=== PATIENT | male | born 1965 | race Caucasian/White ===

== ENCOUNTER 2020-03-28 11:14 | Inpatient (IN) | payer OTHER ==
--- NOTE | 2020-03-28 14:42 | BHS.RME ---
Substance Use & Tx History - Substance Use History Heroin Substance amount: 10 to 15 bags Frequency of use: Daily Substance route: Injection (ex: intravenous or skin popping) Date of Last Use: 03/27/20 Alcohol Substance amount: 12 of 12 ozs of beer Frequency of use: Daily Substance route: Oral Date of Last Use: 03/27/20 - Last Treatment Date of last treatment: never been in detox before Physical/Psych/Mental Status - Behavior Eye Contact: Normal - Cooperativeness Cooperativeness: Cooperative - Thinking Thought Processes: Logical Thought content: Future oriented - Physical Health Problems Is patient presently having any pain?: No Does patient presently have any injuries (include location): No Does patient currently have a fever: No COWS - Scale Resting Pulse: 1= [place] 81-100 Sweatin= Chills/Flushing Restless Observation: 1= Difficult to Sit Still Pupil Size: 1= Pupils >than Normal Bone or Joint Aches: 2= Severe Diffuse Aches Runny Nose/ Eye Tearin= Runny Nose/Eyes GI Upset > 30mins: 3= Vomiting/Diarrhea Tremor Observation: 2= Slight Tremor Visible Yawning Observation: 1= 1-2x During Session Anxiety or Irritability: 2=Irritable/Anxious Goose Flesh Skin: 0=Smooth Skin COWS Score: 16 CIWA Nausea/Vomitin Muscle Tremors: 3 Anxiety: 3 Agitation: 2 Paroxysmal Sweats: 1-Minimal Palms Moist Orientation: 0-Oriented Tacttile Disturbances: 1-Very Mild Itch/Numbness Auditory Disturbances: 0-None Visual Disturbances: 0-None Headache: 2-Mild CIWA-Ar Total Score: 14
--- NOTE | 2020-03-28 14:50 | HP ---
COWS - Scale Resting Pulse: 1= [place] 81-100 Sweatin= Chills/Flushing Restless Observation: 1= Difficult to Sit Still Pupil Size: 1= Pupils >than Normal Bone or Joint Aches: 2= Severe Diffuse Aches Runny Nose/ Eye Tearin= Runny Nose/Eyes GI Upset > 30mins: 3= Vomiting/Diarrhea Tremor Observation: 2= Slight Tremor Visible Yawning Observation: 1= 1-2x During Session Anxiety or Irritability: 2=Irritable/Anxious Goose Flesh Skin: 0=Smooth Skin COWS Score: 16 CIWA Score Nausea/Vomitin Muscle Tremors: 3 Anxiety: 3 Agitation: 2 Paroxysmal Sweats: 1-Minimal Palms Moist Orientation: 0-Oriented Tacttile Disturbances: 1-Very Mild Itch/Numbness Auditory Disturbances: 0-None Visual Disturbances: 0-None Headache: 2-Mild CIWA-Ar Total Score: 14 - Admission Criteria [facility] Guidelines: Admission for Medically Managed Detox: Requires at least one of the followin. CIWA greater than 12 2. Seizures within the past 24 hours 3. Delirium tremens within the past 24 hours 4. Hallucinations within the past 24 hours 5. Acute intervention needed for co occurring medical disorder 6. Acute intervention needed for co occurring psychiatric disorder 7. Severe withdrawal that cannot be handled at a lower level of care (continued vomiting, continued diarrhea, abnormal vital signs) requiring intravenous medication and/or fluids 8. Admitting History and Physical - Admission Chief Complaint: i need help to stop using heroin History of Present Illness: this 55 years old male with heroin dependence seeking detox,never been in detox before History Source: Patient Limitations to Obtaining History: No Limitations - Past Medical History Cardiovascular: Yes: HTN Pulmonary: Yes: Asthma, Bronchitis Gastrointestinal: Yes: GERD Psych: Yes: Addictions Musculoskeletal: Yes: Chronic low back pain - Past Surgical History Additional Past Surgical History: fx of right wrist at age of 34 years ago - Smoking History Smoking history: Never smoked - Alcohol/Substance Use Hx Alcohol Use: Yes History of Substance Use: reports: Heroin - Social History Usual Living Arrangement: Yes: Other (cousin) Do you think of yourself as: Straight/Heterosexual Occupation: disability History of Recent Travel: No Other Social History: on disability,no legal issue Admission ROS S - HPI Chief Complaint: i need help to stop using heroin and alcohol Allergies/Adverse Reactions: Allergies Allergy/AdvReac Type Severity Reaction Status Date / Time No Known Allergies Allergy Verified 03/28/20 15:02 History of Present Illness: this 55 yers old male with heroin and alcohol dependence seeking detox,withdral symptom,never been in detox before, seen in [facility] yesterday history of hypertension asthma bronchitis chronic low back pain was old may have pancreatitis use subutex 10 am yesterday morning Exam Limitations: No Limitations - Ebola screening Have you traveled outside of the country in the last 21 days: No Have you had contact with anyone from an Ebola affected area: No Have you been sick,other than usual withdrawal symptoms: No Do you have a fever: No - Review of Systems Constitutional: Loss of Appetite, Malaise, Night Sweats, Changes in sleep, Weakness EENT: reports: Tearing, Nose Congestion Respiratory: reports: No Symptoms reported Cardiac: reports: No Symptoms Reported GI: reports: Blood Streaked Bowels, Vomiting, Abdominal cramping : reports: No Symptoms Reported Musculoskeletal: reports: Back Pain, Joint Pain, Muscle Pain Integumentary: reports: Dryness Neuro: reports: Tremors Endocrine: reports: No Symptoms Reported Hematology: reports: No Symptoms Reported Psychiatric: reports: No Sypmtoms Reported, Judgement Intact, Mood/Affect Appropiate, Orientated x3, Agitated Other Systems: Reviewed and Negative Patient History - Patient Medical History Hx Anemia: No Hx Asthma: Yes (on albuterol and symbicort ) Hx Chronic Obstructive Pulmonary Disease (COPD): No Hx Cancer: No Hx Cardiac Disorders: No Hx Congestive Heart Failure: No Hx Hypertension: No Hx Hypercholesterolemia: No Hx Pacemaker: No HX Cerebrovascular Accident: No Hx Seizures: No Hx Dementia: No Hx Diabetes: No Hx Gastrointestinal Disorders: No Hx Liver Disease: No Hx Genitourinary Disorders: No Hx Sexually Transmitted Disorders: No Hx Renal Disease (ESRD): No Hx Thyroid Disease: No Hx Human Immunodeficiency Virus (HIV): No Hx Hepatitis C: No Hx Depression: No Hx Suicide Attempt: No Hx Bipolar Disorder: No Hx Schizophrenia: No Other Medical History: no suicidal,no homicidal - Patient Surgical History Hx Orthopedic Surgery: Yes (right wrist fracture at age of 34) - PPD History Previous Implant?: Yes Documented Results: Negative w/o proof Implanted On Prior [facility] Admission?: No PPD to be Administered?: Yes - Smoking Cessation Smoking history: Never smoked - Substance & Tx. History Hx Alcohol Use: Yes Hx Substance Use: Yes Substance Use Type: Alcohol, Heroin Hx Substance Use Treatment: No - Substances abused Heroin Substance route: Injection Frequency: Daily Amount used: 10 to 15 bags Age of first use: 54 Date of last use: 03/27/20 Alcohol Substance route: Oral Frequency: Daily Amount used: 12 of 12 ozs of beer Age of first use: 13 Date of last use: 03/27/20 Admission Physical Exam [facility] - Vital Signs Vital Signs: bp 121/78,p87,r18,t97.2,rivera 0.000,pulse ox 97% - Physical General Appearance: Yes: Moderate Distress, Tremorous, Irritable, Sweating, Anxious HEENTM: Yes: Normal ENT Inspection, YASSINE, Pharynx Normal Respiratory: Yes: Lungs Clear, Normal Breath Sounds, No Respiratory Distress Neck: Yes: Within Normal Limits, Supple, Trachea in good position Breast: Yes: Within Normal Limits Cardiology: Yes: Within Normal Limits, Regular Rhythm, Regular Rate, S1, S2 Abdominal: Yes: Within Normal Limits, Normal Bowel Sounds, Non Tender, Soft Genitourinary: Yes: Within Normal Limits Back: Yes: Muscle Spasm Musculoskeletal: Yes: Back pain, Muscle Pain Extremities: Yes: Within Normal Limits, Normal Range of Motion, Tremors Neurological: Yes: Within Normal Limits, head miller II-XII NML intact, Alert, Motor Strength 5/5 Integumentary: Yes: Dry, Track Crowley (tattooes) Lymphatic: Yes: Within Normal Limits - Diagnostic (1) Opioid dependence with withdrawal Current Visit: Yes Status: Acute (2) Alcohol dependence with uncomplicated withdrawal Current Visit: Yes Status: Acute (3) Hypertension Current Visit: Yes Status: Acute (4) Asthmatic bronchitis Current Visit: Yes Status: Acute Cleared for Admission [facility] - Detox or Rehab [facility] Level of Care: Medically Managed Detox Regimen/Protocol: Methadone/Librium Inpatient Rehab Admission - Rehab Decision to Admit Inpatient rehab admission?: No
[2020-03-28] MEDS ORDERED: IBUPROFEN 400 MG TABLET (FP) PO PRN (15:30)
[2020-03-28] MEDS ORDERED: BISMUTH SUBSALICYLATE 524 MG/30 ML UD PO PRN (15:30)
[2020-03-28] MEDS ORDERED: MENTHOL/PHENOL 1 EACH UD MM PRN (15:30)
[2020-03-28] MEDS ORDERED: ONDANSETRON *ODT* 4 MG TABLET SL PRN (15:30)
[2020-03-28] MEDS ORDERED: ACETAMINOPHEN 325 MG TABLET (FP) PO PRN ×2 (15:30)
[2020-03-28] MEDS ORDERED: MAG HYDROX/AL HYDROX/SIMETH 30 ML UNIT-DOSE CUP PO PRN (15:30)
[2020-03-28] MEDS ORDERED: MAGNESIUM HYDROX 2400MG/30ML ORAL SUSPENSION 30 ML CUP PO PRN (15:30)
[2020-03-28] MEDS ORDERED: NALOXONE HCL 0.4 MG/ML VIAL IM PRN (15:30)
[2020-03-28] MEDS ORDERED: MAGNESIUM CITRATE 300 ML BOTTLE PO PRN (15:30)
[2020-03-28] MEDS ORDERED: METHADONE HCL 10 MG TABLET (FOR DETOX USE ONLY) PO ONE (15:45)
[2020-03-28] MEDS ORDERED: METHADONE HCL 10 MG TABLET (FOR DETOX USE ONLY) ONE (15:48)
[2020-03-28 15:52] VITALS: BMI 30.7
[2020-03-28] MEDS: chlordiazePOXIDE HCL 25 MG CAPSULE PO PRN (15:52)
[2020-03-28] MEDS ORDERED: ALBUTEROL SO4 HFA INHALER IH PRN (18:28)
[2020-03-28] MEDS: PANTOPRAZOLE 40 MG TABLET PO SCH (18:34)
[2020-03-28] MEDS: hydrOXYzine PAMOATE 25 MG CAPSULE (FP) PO SCH ×2 (18:34→23:41)
[2020-03-28] MEDS: cloNIDine HCL 0.1 MG TABLET PO PRN (19:25)
[2020-03-28] MEDS: BUDESONIDE/FORMETEROL FUMARATE 160/4.5 mcg INHALER IH SCH (23:40)
[2020-03-28] MEDS: MELATONIN 5 MG TABLETS PO SCH (23:40)
[2020-03-28] MEDS: THIAMINE HCL 100 MG TABLET (FP) PO SCH (23:41)
[2020-03-28] MEDS: chlordiazePOXIDE HCL 25 MG CAPSULE PO SCH (23:42)
[2020-03-29] MEDS: chlordiazePOXIDE HCL 25 MG CAPSULE PO SCH ×4 (05:30→22:22)
[2020-03-29] MEDS: hydrOXYzine PAMOATE 25 MG CAPSULE (FP) PO SCH ×5 (06:44→22:22)
[2020-03-29] MEDS ORDERED: METHADONE HCL 5 MG TABLET (FOR DETOX USE ONLY) ONE (08:59)
[2020-03-29] MEDS ORDERED: METHADONE HCL 10 MG TABLET (FOR DETOX USE ONLY) ONE (08:59)
[2020-03-29] MEDS ORDERED: PATIENT'S OWN MEDICATION (NON-FORMULARY) (Losartan/Hydrochlorothiazide [Losartan-Hctz 100- PO SCH (10:00)
[2020-03-29] MEDS ORDERED: METHADONE (DETOX) 20 MG, METHADONE (DETOX) 5 MG PO ONE (10:00)
[2020-03-29] MEDS: LOSARTAN POTASSIUM 50 MG TABLET (FP) PO SCH (10:01)
[2020-03-29] MEDS: HYDROCHLOROTHIAZIDE 25 MG TABLET (FP) PO SCH (10:02)
[2020-03-29] MEDS: PRENATAL VITAMINS W/ FOLIC ACID TABLET (FP) PO SCH (10:02)
[2020-03-29] MEDS: PANTOPRAZOLE 40 MG TABLET PO SCH (10:02)
[2020-03-29] MEDS: BUDESONIDE/FORMETEROL FUMARATE 160/4.5 mcg INHALER IH SCH ×2 (10:03→22:23)
[2020-03-29 11:01] LABS: HEMOGLOBIN 10.9 GM/dL (11.7-16.9); MCH 28.1 pg (25.7-33.7); MCHC 33.2 g/dl (32.0-35.9); MEAN CELL VOLUME 84.6 fl (80-96); MEAN PLT VOLUME 7.4 fl (7.5-11.1); PLATELET COUNT 291 K/MM3 (134-434); RBC 3.89 M/mm3 (4.00-5.60); RDW 13.7 % (11.9-15.9); WHITE BLOOD COUNT 6.8 K/mm3 (4.0-10.0)
[2020-03-29 11:13] LABS: ALBUMIN 3.5 g/dl (3.4-5.0); BILIRUBIN,TOTAL 0.8 mg/dL (0.2-1); BLOOD UREA NITROGEN 25.6 mg/dL (7-18); CALCIUM 9.5 mg/dL (8.5-10.1); CREATININE 1.8 mg/dL (0.55-1.3); POTASSIUM 3.6 mmol/L (3.5-5.1); TOT PROT 8.4 g/dl (6.4-8.2)
[2020-03-29] MEDS: cloNIDine HCL 0.1 MG TABLET PO PRN ×2 (11:16→18:35)
--- NOTE | 2020-03-29 11:44 | EKG ---
Test Reason : Blood Pressure : / mmHG Vent. Rate : 073 BPM Atrial Rate : 073 BPM P-R Int : 180 ms QRS Dur : 086 ms QT Int : 368 ms P-R-T Axes : 048 038 048 degrees QTc Int : 405 ms NORMAL SINUS RHYTHM NORMAL ECG NO PREVIOUS ECGS AVAILABLE Confirmed by LISA GARCIA MD ([id number]) on 03/29/2020 11:43:13 AM Referred By: Darin CHOWDHURY Confirmed By:LISA GARCIA MD
[2020-03-29] MEDS: METHOCARBAMOL 500 MG TABLET PO PRN ×2 (13:14→20:13)
--- NOTE | 2020-03-29 15:34 | PN ---
S CIWA - CIWA Score Nausea/Vomitin-Mild Nausea/No Vomiting Muscle Tremors: 3 Anxiety: 3 Agitation: 1-Slight > Activity Paroxysmal Sweats: No Perspiration Orientation: 0-Oriented Tacttile Disturbances: 1-Very Mild Itch/Numbness Auditory Disturbances: 0-None Visual Disturbances: 2-Mild Sensitivity Headache: 2-Mild CIWA-Ar Total Score: 13 BHS COWS - Scale Resting Pulse: 0= [place] 80 or Below Sweatin= Chills/Flushing Restless Observation: 0= Sits Still Pupil Size: 1= Pupils >than Normal Bone or Joint Aches: 1= Mild Discomfort Runny Nose/ Eye Tearin= Nasal Congestion GI Upset > 30mins: 2= Nausea/Diarrhea Tremor Observation of Outstretched Hands: 2= Slight Tremor Visible Yawning Observation: 0= None Anxiety or Irritability: 2=Irritable/Anxious Goose Flesh Skin: 3=Piloerection COWS Score: 13 S Progress Note (SOAP) Subjective: 55 years old male was admitted on 03/28/20 for alcohol and opiate withdrawal sx management treating with librium and opiate withdrawal sx management anxiety restlessness encourage clonidine as ordered prn that works for mr morocho by history while detoxing methadone Objective: 03/29/20 15:34 Vital Signs - 24 hr 03/28/20 03/28/20 03/28/20 15:42 16:34 17:45 Temperature 97.2 F L 97.3 F L Pulse Rate 87 87 Respiratory 18 18 Rate Blood Pressure 121/78 133/85 O2 Sat by Pulse 97 99 Oximetry (%) 03/28/20 03/28/20 03/29/20 19:22 21:06 06:15 Temperature 97.3 F L 97.6 F 96.8 F L Pulse Rate 81 68 52 L Respiratory 18 18 16 Rate Blood Pressure 138/91 129/81 115/70 O2 Sat by Pulse 98 99 Oximetry (%) 03/29/20 03/29/20 09:09 12:34 Temperature 96.4 F L 97.1 F L Pulse Rate 67 73 Respiratory 18 18 Rate Blood Pressure 121/81 99/62 O2 Sat by Pulse Oximetry (%) Laboratory Tests 03/29/20 03/29/20 03/29/20 07:40 07:40 07:40 WBC 6.8 RBC 3.89 L Hgb 10.9 L Hct 33.0 L MCV 84.6 MCH 28.1 MCHC 33.2 RDW 13.7 Plt Count 291 MPV 7.4 L Sodium 134 L Potassium 3.6 Chloride 95 L Carbon Dioxide 30 Anion Gap 9 BUN 25.6 H Creatinine 1.8 H Est GFR (CKD-EPI)AfAm 47.70 Est GFR (CKD-EPI)NonAf 41.16 Random Glucose 95 Calcium 9.5 Total Bilirubin 0.8 AST 24 ALT 36 Alkaline Phosphatase 116 Total Protein 8.4 H Albumin 3.5 Total Amylase Lipase Syphilis Serology Non-reactive 03/29/20 03/29/20 07:40 07:40 WBC RBC Hgb Hct MCV MCH MCHC RDW Plt Count MPV Sodium Potassium Chloride Carbon Dioxide Anion Gap BUN Creatinine Est GFR (CKD-EPI)AfAm Est GFR (CKD-EPI)NonAf Random Glucose Calcium Total Bilirubin AST ALT Alkaline Phosphatase Total Protein Albumin Total Amylase 105 Lipase 329 Syphilis Serology 03/29/20 15:37 amylase and lipase within acceptable range Assessment: alcohol and opiate withdrawal Plan: librium and methadone regiments
[2020-03-29] MEDS: MELATONIN 5 MG TABLETS PO SCH (22:22)
[2020-03-29] MEDS: THIAMINE HCL 100 MG TABLET (FP) PO SCH (22:22)
[2020-03-30] MEDS: cloNIDine HCL 0.1 MG TABLET PO PRN (03:03)
[2020-03-30] MEDS: hydrOXYzine PAMOATE 25 MG CAPSULE (FP) PO SCH ×2 (05:31→10:23)
[2020-03-30] MEDS: chlordiazePOXIDE HCL 25 MG CAPSULE PO SCH ×4 (05:31→22:17)
[2020-03-30] MEDS ORDERED: METHADONE HCL 10 MG TABLET (FOR DETOX USE ONLY) PO ONE (10:00)
[2020-03-30] MEDS: PRENATAL VITAMINS W/ FOLIC ACID TABLET (FP) PO SCH (10:21)
[2020-03-30] MEDS: LOSARTAN POTASSIUM 50 MG TABLET (FP) PO SCH (10:21)
[2020-03-30] MEDS: HYDROCHLOROTHIAZIDE 25 MG TABLET (FP) PO SCH (10:21)
[2020-03-30] MEDS: PANTOPRAZOLE 40 MG TABLET PO SCH (10:21)
[2020-03-30] MEDS: BUDESONIDE/FORMETEROL FUMARATE 160/4.5 mcg INHALER IH SCH ×2 (10:22→22:23)
[2020-03-30 10:35] LABS: URINE APPEARANCE CLEAR; URINE BILIRUBIN NEGATIVE (NEGATIVE); URINE COLOR YELLOW; URINE GLUCOSE (UA) NEGATIVE (NEGATIVE); URINE KETONE NEGATIVE (NEGATIVE); URINE LEUK ESTERASE NEGATIVE (NEGATIVE); URINE NITRITE NEGATIVE (NEGATIVE); URINE PROTEIN NEGATIVE (NEGATIVE); URINE UROBILINOGEN 0.2 mg/dL (0.2-1.0)
--- NOTE | 2020-03-30 11:27 | PN ---
[facility] CIWA - CIWA Score Nausea/Vomitin-Mild Nausea/No Vomiting Muscle Tremors: 2 Anxiety: 3 Agitation: 0-Normal Activity Paroxysmal Sweats: No Perspiration Orientation: 0-Oriented Tacttile Disturbances: 0-None Auditory Disturbances: 0-None Visual Disturbances: 1-Very Mild Sensitivity Headache: 2-Mild CIWA-Ar Total Score: 9 S COWS - Scale Resting Pulse: 0= [place] 80 or Below Sweatin= Chills/Flushing Restless Observation: 0= Sits Still Pupil Size: 1= Pupils >than Normal Bone or Joint Aches: 1= Mild Discomfort Runny Nose/ Eye Tearin= Nasal Congestion GI Upset > 30mins: 2= Nausea/Diarrhea Tremor Observation of Outstretched Hands: 0= None Yawning Observation: 1= 1-2x During Session Anxiety or Irritability: 2=Irritable/Anxious Goose Flesh Skin: 0=Smooth Skin COWS Score: 9 S Progress Note (SOAP) Subjective: 55 years old male was admitted on 03/28/20 for alcohol withdrawal sx management treating with librium and methadone detox regiment low bp Vital Signs - 24 hr 03/29/20 03/29/20 03/29/20 12:34 16:44 18:29 Temperature 97.1 F L 97.3 F L Pulse Rate 73 61 70 Respiratory 18 18 18 Rate Blood Pressure 99/62 105/68 122/79 O2 Sat by Pulse Oximetry (%) 03/29/20 03/30/20 03/30/20 20:29 05:59 08:34 Temperature 96.9 F L 97.2 F L 97.1 F L Pulse Rate 61 62 67 Respiratory 18 18 18 Rate Blood Pressure 100/78 101/60 99/62 O2 Sat by Pulse 100 97 Oximetry (%) discontinue clonidine set parameter for losartan hctz amd metoprolol increase vistaril to 50mg po order naproxin for pain Objective: 03/30/20 11:30 Vital Signs - 24 hr 03/29/20 03/29/20 03/29/20 12:34 16:44 18:29 Temperature 97.1 F L 97.3 F L Pulse Rate 73 61 70 Respiratory 18 18 18 Rate Blood Pressure 99/62 105/68 122/79 O2 Sat by Pulse Oximetry (%) 03/29/20 03/30/2020 20:29 05:59 08:34 Temperature 96.9 F L 97.2 F L 97.1 F L Pulse Rate 61 62 67 Respiratory 18 18 18 Rate Blood Pressure 100/78 101/60 99/62 O2 Sat by Pulse 100 97 Oximetry (%) Laboratory Tests 03/28/20 03/29/20 03/29/20 19:00 07:40 07:40 WBC 6.8 RBC 3.89 L Hgb 10.9 L Hct 33.0 L MCV 84.6 MCH 28.1 MCHC 33.2 RDW 13.7 Plt Count 291 MPV 7.4 L Sodium Potassium Chloride Carbon Dioxide Anion Gap BUN Creatinine Est GFR (CKD-EPI)AfAm Est GFR (CKD-EPI)NonAf Random Glucose Calcium Total Bilirubin AST ALT Alkaline Phosphatase Total Protein Albumin Total Amylase Lipase Urine Color Urine Appearance Urine pH Ur Specific [place] Urine Protein Urine Glucose (UA) Urine Ketones Urine Blood Urine Nitrite Urine Bilirubin Urine Urobilinogen Ur Leukocyte Esterase Syphilis Serology Non-reactive COVID-19 ([facility]) Not detected 03/29/20 03/29/20 03/29/20 07:40 07:40 07:40 WBC RBC Hgb Hct MCV MCH MCHC RDW Plt Count MPV Sodium 134 L Potassium 3.6 Chloride 95 L Carbon Dioxide 30 Anion Gap 9 BUN 25.6 H Creatinine 1.8 H Est GFR (CKD-EPI)AfAm 47.70 Est GFR (CKD-EPI)NonAf 41.16 Random Glucose 95 Calcium 9.5 Total Bilirubin 0.8 AST 24 ALT 36 Alkaline Phosphatase 116 Total Protein 8.4 H Albumin 3.5 Total Amylase 105 Lipase 329 Urine Color Urine Appearance Urine pH Ur Specific [place] Urine Protein Urine Glucose (UA) Urine Ketones Urine Blood Urine Nitrite Urine Bilirubin Urine Urobilinogen Ur Leukocyte Esterase Syphilis Serology COVID-19 ([facility]) 03/30/20 08:00 WBC RBC Hgb Hct MCV MCH MCHC RDW Plt Count MPV Sodium Potassium Chloride Carbon Dioxide Anion Gap BUN Creatinine Est GFR (CKD-EPI)AfAm Est GFR (CKD-EPI)NonAf Random Glucose Calcium Total Bilirubin AST ALT Alkaline Phosphatase Total Protein Albumin Total Amylase Lipase Urine Color Yellow Urine Appearance Clear Urine pH 5.0 Ur Specific [place] 1.007 L Urine Protein Negative Urine Glucose (UA) Negative Urine Ketones Negative Urine Blood Negative Urine Nitrite Negative Urine Bilirubin Negative Urine Urobilinogen 0.2 Ur Leukocyte Esterase Negative Syphilis Serology COVID-19 ([facility]) oral hydration discontinue motrin begin naproxin 03/30/20 11:31 Assessment: 03/30/20 11:32 alcohol and opiate withdrawal Plan: librium and methadone regiments
[2020-03-30] MEDS: chlordiazePOXIDE HCL 25 MG CAPSULE PO PRN ×2 (11:46→19:07)
[2020-03-30] MEDS: METHOCARBAMOL 500 MG TABLET PO PRN ×2 (11:47→21:25)
[2020-03-30] MEDS: hydrOXYzine PAMOATE 50 MG CAPSULE (FP) PO SCH ×4 (11:47→23:00)
[2020-03-30] MEDS ORDERED: cloNIDine HCL 0.1 MG TABLET PO ONE (13:45)
[2020-03-30] MEDS: NAPROXEN 375 MG TABLET PO SCH ×2 (17:38→22:18)
[2020-03-30] MEDS: THIAMINE HCL 100 MG TABLET (FP) PO SCH (22:17)
[2020-03-30] MEDS: MELATONIN 5 MG TABLETS PO SCH (22:19)
[2020-03-31] MEDS: chlordiazePOXIDE HCL 10 MG CAPSULE PO PRN ×2 (00:33→20:31)
[2020-03-31] MEDS: hydrOXYzine PAMOATE 50 MG CAPSULE (FP) PO SCH ×6 (03:10→22:44)
[2020-03-31] MEDS: METHOCARBAMOL 500 MG TABLET PO PRN (03:12)
[2020-03-31] MEDS: chlordiazePOXIDE HCL 10 MG CAPSULE PO SCH ×4 (05:45→22:10)
[2020-03-31] MEDS ORDERED: METHADONE HCL 10 MG TABLET (FOR DETOX USE ONLY) ONE (09:58)
[2020-03-31] MEDS ORDERED: METHADONE HCL 5 MG TABLET (FOR DETOX USE ONLY) ONE (09:59)
[2020-03-31] MEDS ORDERED: METHADONE (DETOX) 10 MG, METHADONE (DETOX) 5 MG PO ONE (10:00)
[2020-03-31] MEDS: LOSARTAN POTASSIUM 50 MG TABLET (FP) PO SCH (10:24)
[2020-03-31] MEDS: PRENATAL VITAMINS W/ FOLIC ACID TABLET (FP) PO SCH (10:25)
[2020-03-31] MEDS: PANTOPRAZOLE 40 MG TABLET PO SCH (10:25)
[2020-03-31] MEDS: BUDESONIDE/FORMETEROL FUMARATE 160/4.5 mcg INHALER IH SCH ×2 (10:25→22:10)
[2020-03-31] MEDS: NAPROXEN 375 MG TABLET PO SCH ×2 (10:26→22:10)
[2020-03-31] MEDS: HYDROCHLOROTHIAZIDE 25 MG TABLET (FP) PO SCH (10:27)
--- NOTE | 2020-03-31 11:59 | PN ---
S CIWA - CIWA Score Nausea/Vomitin-No Nausea/No Vomiting Muscle Tremors: 2 Anxiety: 2 Agitation: 0-Normal Activity Paroxysmal Sweats: No Perspiration Orientation: 0-Oriented Tacttile Disturbances: 0-None Auditory Disturbances: 0-None Visual Disturbances: 2-Mild Sensitivity Headache: 0-None Present CIWA-Ar Total Score: 6 BHS COWS - Scale Resting Pulse: 0= [place] 80 or Below Sweatin= Chills/Flushing Restless Observation: 0= Sits Still Pupil Size: 1= Pupils >than Normal Bone or Joint Aches: 1= Mild Discomfort Runny Nose/ Eye Tearin= None GI Upset > 30mins: 1= Stomach Cramp Tremor Observation of Outstretched Hands: 1= Tremor [place], Not Seen Yawning Observation: 0= None Anxiety or Irritability: 1=Feels Anxious/Irritable Goose Flesh Skin: 0=Smooth Skin COWS Score: 6 S Progress Note (SOAP) Subjective: 55 years old male was admitted on 03/28/20 for alcohol and opiate withdrawal sx management treating with librium and methadone detox regiments mr morocho insists to take clonidine for opiate withdrawal that it is "the only drug" works hold metoprolol while clonidine is in used Objective: 03/31/20 12:05 Vital Signs - 24 hr 03/30/20 03/30/20 03/30/20 12:32 16:35 20:58 Temperature 97.3 F L 97.5 F L 96.9 F L Pulse Rate 83 65 81 Respiratory 20 18 18 Rate Blood Pressure 109/67 102/60 125/87 O2 Sat by Pulse 100 100 98 Oximetry (%) 03/31/20 03/31/20 06:29 08:40 Temperature 97.1 F L 96.7 F L Pulse Rate 63 69 Respiratory 18 18 Rate Blood Pressure 101/66 141/90 O2 Sat by Pulse 99 Oximetry (%) Laboratory Tests 03/28/20 03/29/20 03/29/20 19:00 07:40 07:40 WBC 6.8 RBC 3.89 L Hgb 10.9 L Hct 33.0 L MCV 84.6 MCH 28.1 MCHC 33.2 RDW 13.7 Plt Count 291 MPV 7.4 L Sodium Potassium Chloride Carbon Dioxide Anion Gap BUN Creatinine Est GFR (CKD-EPI)AfAm Est GFR (CKD-EPI)NonAf Random Glucose Calcium Total Bilirubin AST ALT Alkaline Phosphatase Total Protein Albumin Total Amylase Lipase Urine Color Urine Appearance Urine pH Ur Specific [place] Urine Protein Urine Glucose (UA) Urine Ketones Urine Blood Urine Nitrite Urine Bilirubin Urine Urobilinogen Ur Leukocyte Esterase Syphilis Serology Non-reactive COVID-19 ([facility]) Not detected 03/29/20 03/29/20 03/29/20 07:40 07:40 07:40 WBC RBC Hgb Hct MCV MCH MCHC RDW Plt Count MPV Sodium 134 L Potassium 3.6 Chloride 95 L Carbon Dioxide 30 Anion Gap 9 BUN 25.6 H Creatinine 1.8 H Est GFR (CKD-EPI)AfAm 47.70 Est GFR (CKD-EPI)NonAf 41.16 Random Glucose 95 Calcium 9.5 Total Bilirubin 0.8 AST 24 ALT 36 Alkaline Phosphatase 116 Total Protein 8.4 H Albumin 3.5 Total Amylase 105 Lipase 329 Urine Color Urine Appearance Urine pH Ur Specific [place] Urine Protein Urine Glucose (UA) Urine Ketones Urine Blood Urine Nitrite Urine Bilirubin Urine Urobilinogen Ur Leukocyte Esterase Syphilis Serology COVID-19 ([facility]) 03/30/20 08:00 WBC RBC Hgb Hct MCV MCH MCHC RDW Plt Count MPV Sodium Potassium Chloride Carbon Dioxide Anion Gap BUN Creatinine Est GFR (CKD-EPI)AfAm Est GFR (CKD-EPI)NonAf Random Glucose Calcium Total Bilirubin AST ALT Alkaline Phosphatase Total Protein Albumin Total Amylase Lipase Urine Color Yellow Urine Appearance Clear Urine pH 5.0 Ur Specific [place] 1.007 L Urine Protein Negative Urine Glucose (UA) Negative Urine Ketones Negative Urine Blood Negative Urine Nitrite Negative Urine Bilirubin Negative Urine Urobilinogen 0.2 Ur Leukocyte Esterase Negative Syphilis Serology COVID-19 ([facility]) lab noted 03/31/20 12:07 Assessment: 03/31/20 12:07 alcohol and opiate withdrawal Plan: librium and methadone regiments
[2020-03-31] MEDS: cloNIDine HCL 0.1 MG TABLET PO PRN ×2 (12:38→18:35)
[2020-03-31] MEDS: THIAMINE HCL 100 MG TABLET (FP) PO SCH (22:10)
[2020-03-31] MEDS: MELATONIN 5 MG TABLETS PO SCH (22:10)
[2020-04-01] MEDS: cloNIDine HCL 0.1 MG TABLET PO PRN ×4 (02:34→21:13)
[2020-04-01] MEDS: chlordiazePOXIDE HCL 10 MG CAPSULE PO SCH ×2 (05:31→17:31)
[2020-04-01] MEDS: hydrOXYzine PAMOATE 50 MG CAPSULE (FP) PO SCH ×6 (05:31→23:09)
[2020-04-01] MEDS: BUDESONIDE/FORMETEROL FUMARATE 160/4.5 mcg INHALER IH SCH ×2 (09:42→21:13)
[2020-04-01] MEDS: HYDROCHLOROTHIAZIDE 25 MG TABLET (FP) PO SCH (09:42)
[2020-04-01] MEDS: PANTOPRAZOLE 40 MG TABLET PO SCH (09:43)
[2020-04-01] MEDS: LOSARTAN POTASSIUM 50 MG TABLET (FP) PO SCH (09:43)
[2020-04-01] MEDS: NAPROXEN 375 MG TABLET PO SCH ×2 (09:43→21:13)
[2020-04-01] MEDS: PRENATAL VITAMINS W/ FOLIC ACID TABLET (FP) PO SCH (09:43)
[2020-04-01] MEDS: METHOCARBAMOL 500 MG TABLET PO PRN ×2 (09:44→21:13)
[2020-04-01] MEDS ORDERED: METHADONE HCL 10 MG TABLET (FOR DETOX USE ONLY) PO ONE (10:00)
--- NOTE | 2020-04-01 10:02 | PN ---
[facility] CIWA - CIWA Score Nausea/Vomitin-Mild Nausea/No Vomiting Muscle Tremors: 2 Anxiety: 2 Agitation: 1-Slight > Activity Paroxysmal Sweats: No Perspiration Orientation: 0-Oriented Tacttile Disturbances: 0-None Auditory Disturbances: 0-None Visual Disturbances: 0-None Headache: 1-Very Mild CIWA-Ar Total Score: 7 S COWS - Scale Resting Pulse: 1= [place] 81-100 Sweatin= No chills or Flushing Restless Observation: 0= Sits Still Pupil Size: 0= Normal to Room Light Bone or Joint Aches: 1= Mild Discomfort Runny Nose/ Eye Tearin= Nasal Congestion GI Upset > 30mins: 1= Stomach Cramp Tremor Observation of Outstretched Hands: 2= Slight Tremor Visible Yawning Observation: 0= None Anxiety or Irritability: 2=Irritable/Anxious Goose Flesh Skin: 0=Smooth Skin COWS Score: 8 [facility] Progress Note (SOAP) Subjective: alert,irritable,anxious,interrupted sleep,pain in the body and back,aching pain,low back pain Objective: 04/01/20 15:58 Vital Signs Temperature 96.9 F L 04/01/20 12:38 Pulse Rate 74 04/01/20 12:38 Respiratory Rate 20 04/01/20 12:38 Blood Pressure 100/66 04/01/20 12:38 O2 Sat by Pulse Oximetry (%) 100 04/01/20 12:38 Assessment: 04/01/20 15:59 withdrawal symptom Plan: continue detox methadone and librium regimen,vishal for ambulatory aids,discharge in am
[2020-04-01] MEDS: THIAMINE HCL 100 MG TABLET (FP) PO SCH (21:14)
[2020-04-01] MEDS: MELATONIN 5 MG TABLETS PO SCH (21:14)
[2020-04-02] MEDS ORDERED: chlordiazePOXIDE HCL 10 MG CAPSULE PO ONE (05:00)
[2020-04-02] MEDS: hydrOXYzine PAMOATE 50 MG CAPSULE (FP) PO SCH ×3 (06:00→12:46)
[2020-04-02] MEDS ORDERED: METHADONE HCL 5 MG TABLET (FOR DETOX USE ONLY) PO ONE (06:00)
--- NOTE | 2020-04-02 08:54 | DS ---
[facility] Detox Discharge Summary Admission Date: 03/28/20 Discharge Date: 04/02/20 - History Present History: Alcohol Dependence, Opioid Dependence - Physical Exam Results Vital Signs: Vital Signs Temperature 96.8 F L 04/02/20 07:34 Pulse Rate 58 L 04/02/20 07:34 Respiratory Rate 18 04/02/20 07:34 Blood Pressure 120/77 04/02/20 07:34 O2 Sat by Pulse Oximetry (%) 98 04/02/20 07:34 Pertinent Admission Physical Exam Findings: PE Gnl: WDWN in no distress MS: nl mentation Motor: moves limbs well Gait: steady Laboratory Tests 03/28/20 03/29/20 03/29/20 19:00 07:40 07:40 WBC 6.8 RBC 3.89 L Hgb 10.9 L Hct 33.0 L MCV 84.6 MCH 28.1 MCHC 33.2 RDW 13.7 Plt Count 291 MPV 7.4 L Sodium Potassium Chloride Carbon Dioxide Anion Gap BUN Creatinine Est GFR (CKD-EPI)AfAm Est GFR (CKD-EPI)NonAf Random Glucose Calcium Total Bilirubin AST ALT Alkaline Phosphatase Total Protein Albumin Total Amylase Lipase Urine Color Urine Appearance Urine pH Ur Specific [place] Urine Protein Urine Glucose (UA) Urine Ketones Urine Blood Urine Nitrite Urine Bilirubin Urine Urobilinogen Ur Leukocyte Esterase Syphilis Serology Non-reactive COVID-19 (SAKSHI) Not detected 03/29/20 03/29/20 03/29/20 07:40 07:40 07:40 WBC RBC Hgb Hct MCV MCH MCHC RDW Plt Count MPV Sodium 134 L Potassium 3.6 Chloride 95 L Carbon Dioxide 30 Anion Gap 9 BUN 25.6 H Creatinine 1.8 H Est GFR (CKD-EPI)AfAm 47.70 Est GFR (CKD-EPI)NonAf 41.16 Random Glucose 95 Calcium 9.5 Total Bilirubin 0.8 AST 24 ALT 36 Alkaline Phosphatase 116 Total Protein 8.4 H Albumin 3.5 Total Amylase 105 Lipase 329 Urine Color Urine Appearance Urine pH Ur Specific [place] Urine Protein Urine Glucose (UA) Urine Ketones Urine Blood Urine Nitrite Urine Bilirubin Urine Urobilinogen Ur Leukocyte Esterase Syphilis Serology COVID-19 (SAKSHI) 03/30/20 08:00 WBC RBC Hgb Hct MCV MCH MCHC RDW Plt Count MPV Sodium Potassium Chloride Carbon Dioxide Anion Gap BUN Creatinine Est GFR (CKD-EPI)AfAm Est GFR (CKD-EPI)NonAf Random Glucose Calcium Total Bilirubin AST ALT Alkaline Phosphatase Total Protein Albumin Total Amylase Lipase Urine Color Yellow Urine Appearance Clear Urine pH 5.0 Ur Specific [place] 1.007 L Urine Protein Negative Urine Glucose (UA) Negative Urine Ketones Negative Urine Blood Negative Urine Nitrite Negative Urine Bilirubin Negative Urine Urobilinogen 0.2 Ur Leukocyte Esterase Negative Syphilis Serology COVID-19 (SAKSHI) Home Medication List Medication Instructions Recorded Confirmed Type Losartan/Hydrochlorothiazide 1 each PO DAILY 03/28/20 03/28/20 History [Losartan-Hctz 100-25 mg Tab] Metoprolol Succinate 50 mg PO DAILY 03/28/20 03/28/20 History Pantoprazole Sodium 40 mg PO DAILY 03/28/20 03/28/20 History Active Medications Generic Name Dose Route Start Last Admin Trade Name Freq PRN Reason Stop Dose Admin Acetaminophen 650 mg 03/28/20 15:30 Tylenol - PO Q6H PRN PAIN LEVEL 4 - 6 Acetaminophen 650 mg 03/28/20 15:30 Tylenol - PO Q6H PRN FEVER Al Hydroxide/Mg Hydroxide 30 ml 03/28/20 15:30 03/31/20 21:17 Mylanta Oral Suspension - PO 30 ml Q6H PRN Administration DYSPEPSIA Albuterol Sulfate 2 puff 03/28/20 18:28 Ventolin Hfa Inhaler - IH Q4H PRN SHORT OF BREATH/WHEEZING Bismuth Subsalicylate 524 mg 03/28/20 15:30 Pepto-Bismol - PO Q1H PRN DIARRHEA Budesonide/Formoterol Fumarate 2 puff 03/28/20 22:00 04/01/20 21:13 Symbicort 160/4.5mcg - IH 2 puff BID HANNY Administration Clonidine 0.1 mg 03/31/20 10:33 04/01/20 21:13 Catapres - PO 0.1 mg Q6H PRN Administration WITHDRAWAL(CONT SUBST) Eucalyptus/Menthol/Phenol/Sorbitol 1 each 03/28/20 15:30 Cepastat Lozenge - MM 04/03/20 15:31 Q4H PRN SORE THROAT Hydrochlorothiazide 25 mg 03/30/20 11:19 04/01/20 09:42 Hctz - PO 25 mg DAILY HANNY Administration Hydroxyzine Pamoate 50 mg 03/30/20 11:30 04/02/20 08:46 Vistaril - PO 04/03/20 15:31 Not Given Q4H HANNY Losartan Potassium 100 mg 03/30/20 11:19 04/01/20 09:43 Cozaar - PO 100 mg DAILY HANNY Administration Magnesium Citrate 300 ml 03/28/20 15:30 Citroma - PO Q48H PRN CONSTIPATION Magnesium Hydroxide 30 ml 03/28/20 15:30 Milk Of Magnesia - PO PRN PRN CONSTIPATION Melatonin 5 mg 03/28/20 22:00 04/01/20 21:14 Melatonin PO 5 mg HS HANNY Administration Methocarbamol 500 mg 03/28/20 15:30 04/01/20 21:13 Robaxin - PO 04/03/20 15:31 500 mg Q6H PRN Administration MUSCLE SPASMS Metoprolol Succinate 50 mg 03/30/20 11:19 03/31/20 10:25 Toprol Xl - PO 50 mg DAILY HANNY Administration Naloxone HCl 0.4 mg 03/28/20 15:30 Narcan - IM PRN PRN RESPIRATORY DEPRESSION Naproxen 375 mg 03/30/20 11:30 04/01/20 21:13 Naprosyn - PO 375 mg BID HANNY Administration Ondansetron HCl 4 mg 03/28/20 15:30 Zofran Odt - SL Q8H PRN Nausea/Vomiting Pantoprazole Sodium 40 mg 03/28/20 16:30 04/01/20 09:43 Protonix - PO 40 mg DAILY HANNY Administration Multivit/Folic Acid/Iron 1 tab 03/29/20 10:00 04/01/20 09:43 Vitamins (Sjr) - PO 1 tab DAILY HANNY Administration Thiamine HCl 100 mg 03/28/20 22:00 04/01/20 21:14 Vitamin B1 - PO 100 mg HS HANNY Administration - Treatment Hospital Course: Detox Protocol Followed, Detoxed Safely, Responded well, Discharged Condition Good, Rehab Referral Accepted Patient has Accepted a Rehab Referral to: Per Counselors notes: rehab at [facility] or alternative - Medication Discharge Medications: Ambulatory Orders Losartan/Hydrochlorothiazide [Losartan-Hctz 100-25 mg Tab] 1 each PO DAILY 03/28/20 Metoprolol Succinate 50 mg PO DAILY 03/28/20 Pantoprazole Sodium 40 mg PO DAILY 03/28/20 - AMA Did Patient Leave Against Medical Advice: No
[2020-04-02] MEDS: cloNIDine HCL 0.1 MG TABLET PO PRN (09:03)
[2020-04-02] MEDS: LOSARTAN POTASSIUM 50 MG TABLET (FP) PO SCH (09:03)
[2020-04-02] MEDS: HYDROCHLOROTHIAZIDE 25 MG TABLET (FP) PO SCH (09:04)
[2020-04-02] MEDS: NAPROXEN 375 MG TABLET PO SCH (09:04)
[2020-04-02] MEDS: PANTOPRAZOLE 40 MG TABLET PO SCH (09:04)
[2020-04-02] MEDS: PRENATAL VITAMINS W/ FOLIC ACID TABLET (FP) PO SCH (09:05)
[2020-04-02] MEDS: BUDESONIDE/FORMETEROL FUMARATE 160/4.5 mcg INHALER IH SCH (09:05)
[2020-04-02 13:14] VITALS: BP 98/62; PULSE 57; TEMP 97.5
== END 2020-04-02 14:08 | disposition other institution (70) | DRG 773 ==
LOC: YASAS 11:14 → Y3N 15:45
PROVIDERS: ADMIT Allergy & Immunology; ATTEND Allergy & Immunology
PROC: HZ2ZZZZ Detoxification Services for Substance Abuse Treatment (ICD-10-PCS; principal; 2020-03-28)
DX: F11.23 Opioid dependence with withdrawal (principal); F10.230 Alcohol dependence with withdrawal, uncomplicated; I10 Essential (primary) hypertension; J45.909 Unspecified asthma, uncomplicated; K21.9 Gastro-esophageal reflux disease without esophagitis; M54.5 Low back pain; G89.29 Other chronic pain; Z87.81 Personal history of (healed) traumatic fracture; Z99.89 Dependence on other enabling machines and devices
CPT/HCPCS: 36415; 80053; 81003; 82150; 83690; 85027; 86780; 93005; 93010; J0735; U0003

== ENCOUNTER 2020-04-02 14:13 | Inpatient (IN) | payer OTHER ==
--- NOTE | 2020-04-02 15:01 | HP ---
[facility] Rehab Assess/Revision - Admission History Admitted to Rehab from: [address] Date of Admission to Rehab: 04/02/20 - Findings Detox History & Physical reviewed: Yes Concur with findings: Yes Comments/Additional Findings: New admit from [address] [place] [address] detox. Hx REG-Heroin and alcohol. PMHx:HTN,Asthma,GERD,Chronic Back Pain. Psych:Denies on admission to detox but now in rehab and reports hx of Depression/ anxiety/ insomnia and requests to see psych consult. Alert o x 3. nad. oob ambulating with steady gait. extremities:no edema, skin intact. s/p detox. increase po fluids. maintain safety. clonidine 0.1 mg po bid with parameters. Inpatient Rehab Admission - Rehab Decision to Admit Inpatient rehab admission?: Yes - Initial Determination Are CD services needed?: Yes Free of communicable disease: Yes Not in need of hospitalization: Yes - Rehab Admission Criteria Previous failed treatment: Yes Poor recovery environment: Yes Comorbidities: Yes Lacks judgement: Yes Patient is meeting Inpatient Rehab admission criteria:: Yes
[2020-04-02] MEDS ORDERED: hydrOXYzine PAMOATE 25 MG CAPSULE (FP) PO PRN (15:02)
[2020-04-02] MEDS ORDERED: LOPERAMIDE HCL 2 MG CAPSULE PO PRN (15:02)
[2020-04-02] MEDS ORDERED: MAGNESIUM CITRATE 300 ML BOTTLE PO PRN (15:02)
[2020-04-02] MEDS ORDERED: MAG HYDROX/AL HYDROX/SIMETH 30 ML UNIT-DOSE CUP PO PRN (15:02)
[2020-04-02] MEDS ORDERED: IBUPROFEN 400 MG TABLET (FP) PO PRN (15:02)
[2020-04-02] MEDS ORDERED: MAGNESIUM HYDROX 2400MG/30ML ORAL SUSPENSION 30 ML CUP PO PRN (15:02)
[2020-04-02] MEDS ORDERED: ACETAMINOPHEN 325 MG TABLET (FP) PO PRN (15:02)
[2020-04-02] MEDS ORDERED: P-EPHED 60MG/TRIPROLIDI 2.5MG TABLET PO PRN (15:02)
[2020-04-02] MEDS ORDERED: MENTHOL/PHENOL 1 EACH UD MM PRN (15:02)
[2020-04-02] MEDS ORDERED: guaiFENesin 200 MG/10 ML 10 ML UNIT-DOSE CUPS PO PRN (15:02)
[2020-04-02] MEDS ORDERED: NICOTINE POLACRILEX 2 MG GUM BUC PRN (15:02)
[2020-04-02] MEDS ORDERED: ALBUTEROL SO4 HFA INHALER IH PRN (15:33)
[2020-04-02] MEDS: METHOCARBAMOL 500 MG TABLET PO PRN (17:14)
[2020-04-02] MEDS: THIAMINE HCL 100 MG TABLET (FP) PO SCH (21:05)
[2020-04-02] MEDS: MELATONIN 5 MG TABLETS PO SCH (21:06)
[2020-04-02] MEDS: BUDESONIDE/FORMETEROL FUMARATE 160/4.5 mcg INHALER IH SCH (21:06)
[2020-04-02] MEDS: cloNIDine HCL 0.1 MG TABLET PO SCH (21:07)
[2020-04-02] MEDS: NAPROXEN 500 MG TABLET PO PRN (21:09)
--- NOTE | 2020-04-03 08:41 | CONSULT ---
[facility] Psychiatric Consult - Data Date of interview: 04/03/20 Admission source: [facility] Identifying data: Patient is a 55 year old male, father of three, unemployed, homeless, and is supported with disability benefits. This is patient's first admission to rehab at [facility]. Patient admitted to for opiate dependence. Substance Abuse History: Smoking Cessation. Smoking history: Never smoked. - Substance & Tx. History. Hx Alcohol Use: Yes. Hx Substance Use: Yes. Substance Use Type: Alcohol, Heroin. Hx Substance Use Treatment: No. - Substances abused. Heroin. Substance route: Injection. Frequency: Daily. Amount used: 10 to 15 bags. Age of first use: 54. Date of last use: 03/27/20. Alcohol. Substance route: Oral. Frequency: Daily. Amount used: 12 of 12 ozs of beer. Age of first use: 13. Date of last use: 03/27/20 Medical History: Asthma, hypertension, h/o right wrist fracture at 34 years of age. Psychiatric History: Patient's first psychiatric contact was at 34 years of age after he saw a psychiatrist in [place], [place] due to depressed mood and anxiety after the woman who adopted him and raised him . Mr. Santana reports being treated with various SSRI's and buspar but states that none was effective. States that valium was the only effective medication. Patient has not seen a psychiatrist since discontinuing treatment after one year but stated that he continued to receive valium for approximately 20 years from a primary care physician. No reported history of psychiatric hospitalizations and suicide attempt. At present patient reports worsenig anxiety and difficulty sleeping. Physical/Sexual Abuse/Trauma History: denies. Mental Status Exam - Mental Status Exam Alert and Oriented to: Time, Place, Person Cognitive Function: Good Patient Appearance: Well Groomed Mood: Anxious, Hopeful Affect: Mood Congruent Patient Behavior: Cooperative Speech Pattern: Appropriate Voice Loudness: Normal Thought Process: Goal Oriented Thought Disorder: Not Present Hallucinations: Denies Suicidal Ideation: Denies Homicidal Ideation: Denies Insight/Judgement: Poor Sleep: Poorly Appetite: Fair Muscle strength/Tone: Normal Gait/Station: Normal Psychiatric Findings - Problem List (Ava 1, 2,3) (1) Alcohol use disorder Current Visit: Yes Status: Acute (2) Opioid dependence Current Visit: Yes Status: Acute (3) Substance-induced sleep disorder Current Visit: Yes Status: Acute - Initial Treatment Plan Initial Treatment Plan: Psychoeducation provided. Rehab in progress. 1) Will d/c vistaril 25mg q4h. 2) Will order Vistaril 50mg q6h + Trazodone 50mg HS. Benefits and side effects discussed. Verbal consent given.
[2020-04-03] MEDS: hydrOXYzine PAMOATE 50 MG CAPSULE (FP) PO PRN ×3 (09:39→21:18)
[2020-04-03] MEDS: PRENATAL VITAMINS W/ FOLIC ACID TABLET (FP) PO SCH (09:39)
[2020-04-03] MEDS: LOSARTAN POTASSIUM 50 MG TABLET (FP) PO SCH (09:39)
[2020-04-03] MEDS: PANTOPRAZOLE 40 MG TABLET PO SCH (09:39)
[2020-04-03] MEDS: BUDESONIDE/FORMETEROL FUMARATE 160/4.5 mcg INHALER IH SCH ×2 (09:39→21:17)
[2020-04-03] MEDS: HYDROCHLOROTHIAZIDE 25 MG TABLET (FP) PO SCH (09:39)
[2020-04-03] MEDS: NAPROXEN 500 MG TABLET PO PRN ×2 (09:40→21:20)
[2020-04-03] MEDS: cloNIDine HCL 0.1 MG TABLET PO SCH ×2 (09:41→21:18)
[2020-04-03] MEDS ORDERED: NICOTINE 7 MG/24 HOURS TOPICAL PATCH TD SCH (10:00)
[2020-04-03] MEDS ORDERED: PATIENT'S OWN MEDICATION (NON-FORMULARY) (Losartan/Hydrochlorothiazide [Losartan-Hctz 100- PO SCH (10:00)
[2020-04-03] MEDS: METHOCARBAMOL 500 MG TABLET PO PRN (18:36)
[2020-04-03] MEDS: THIAMINE HCL 100 MG TABLET (FP) PO SCH (21:18)
[2020-04-03] MEDS: traZODone HCL 50 MG TABLET (FP) PO SCH (21:18)
[2020-04-03] MEDS: MELATONIN 5 MG TABLETS PO SCH (21:18)
[2020-04-04] MEDS: METHOCARBAMOL 500 MG TABLET PO PRN (03:35)
[2020-04-04] MEDS: hydrOXYzine PAMOATE 50 MG CAPSULE (FP) PO PRN ×4 (03:36→22:45)
[2020-04-04] MEDS: HYDROCHLOROTHIAZIDE 25 MG TABLET (FP) PO SCH (09:48)
[2020-04-04] MEDS: PRENATAL VITAMINS W/ FOLIC ACID TABLET (FP) PO SCH (09:48)
[2020-04-04] MEDS: BUDESONIDE/FORMETEROL FUMARATE 160/4.5 mcg INHALER IH SCH ×2 (09:48→21:27)
[2020-04-04] MEDS: PANTOPRAZOLE 40 MG TABLET PO SCH (09:48)
[2020-04-04] MEDS: LOSARTAN POTASSIUM 50 MG TABLET (FP) PO SCH (09:49)
[2020-04-04] MEDS: cloNIDine HCL 0.1 MG TABLET PO SCH ×2 (09:49→22:45)
[2020-04-04] MEDS: NAPROXEN 500 MG TABLET PO PRN ×2 (09:51→21:28)
[2020-04-04] MEDS: traZODone HCL 50 MG TABLET (FP) PO SCH (21:26)
[2020-04-04] MEDS: MELATONIN 5 MG TABLETS PO SCH (21:27)
[2020-04-04] MEDS: THIAMINE HCL 100 MG TABLET (FP) PO SCH (21:27)
[2020-04-05] MEDS ORDERED: cloNIDine HCL 0.1 MG TABLET PO PRN ×2 (09:56→09:59)
[2020-04-05] MEDS: PRENATAL VITAMINS W/ FOLIC ACID TABLET (FP) PO SCH (10:07)
[2020-04-05] MEDS: LOSARTAN POTASSIUM 50 MG TABLET (FP) PO SCH (10:08)
[2020-04-05] MEDS: BUDESONIDE/FORMETEROL FUMARATE 160/4.5 mcg INHALER IH SCH ×2 (10:08→21:08)
[2020-04-05] MEDS: NAPROXEN 500 MG TABLET PO PRN ×2 (10:08→21:09)
[2020-04-05] MEDS: hydrOXYzine PAMOATE 50 MG CAPSULE (FP) PO PRN ×3 (10:10→22:41)
[2020-04-05] MEDS: METHOCARBAMOL 500 MG TABLET PO PRN ×5 (10:10→22:41)
[2020-04-05] MEDS: PANTOPRAZOLE 40 MG TABLET PO SCH (10:11)
[2020-04-05] MEDS: HYDROCHLOROTHIAZIDE 25 MG TABLET (FP) PO SCH (10:11)
[2020-04-05] MEDS: MELATONIN 5 MG TABLETS PO SCH (21:09)
[2020-04-05] MEDS: traZODone HCL 50 MG TABLET (FP) PO SCH (21:09)
[2020-04-05] MEDS: THIAMINE HCL 100 MG TABLET (FP) PO SCH (21:09)
[2020-04-06] MEDS: hydrOXYzine PAMOATE 50 MG CAPSULE (FP) PO PRN ×2 (04:35→09:48)
[2020-04-06] MEDS: METHOCARBAMOL 500 MG TABLET PO PRN (04:35)
[2020-04-06 06:39] VITALS: TEMP 97.7
[2020-04-06] MEDS: PANTOPRAZOLE 40 MG TABLET PO SCH (09:46)
[2020-04-06] MEDS: HYDROCHLOROTHIAZIDE 25 MG TABLET (FP) PO SCH (09:46)
[2020-04-06] MEDS: PRENATAL VITAMINS W/ FOLIC ACID TABLET (FP) PO SCH (09:46)
[2020-04-06] MEDS: NAPROXEN 500 MG TABLET PO PRN (09:46)
[2020-04-06] MEDS: LOSARTAN POTASSIUM 50 MG TABLET (FP) PO SCH (09:46)
[2020-04-06] MEDS: BUDESONIDE/FORMETEROL FUMARATE 160/4.5 mcg INHALER IH SCH (09:47)
[2020-04-06 11:52] VITALS: BP 141/70; PULSE 62
--- NOTE | 2020-04-06 12:47 | DS ---
[facility] Rehab Discharge Summary - [facility] Rehab Discharge Summary Admission Date: 04/02/20 Discharge Date: 04/06/20 - History Present History: Alcohol dependence, Opioid dependence, Sedative dependence Pertinent Past History: Asthma HTN - Discharge Physical Exam Vital Signs: Vital Signs Temperature 97.7 F 04/06/20 06:05 Pulse Rate 62 04/06/20 08:45 Respiratory Rate 18 04/06/20 06:05 Blood Pressure 141/70 04/06/20 08:45 O2 Sat by Pulse Oximetry (%) 96 04/06/20 06:05 General:WDWN male, Alert o x 3, nad,denies s/h/i cardiac:s1 s2, rrr lungs:ctab MSK:Active FROM,all limbs; oob ambulating with steady gait; no edema. Skin:skin intact Pertinent Admission Physical Exam Findings: S/P Detox [address] [place] [address] Unremarkable - Treatment Discharge Condition: Discharge condition good, Rehabilitated safely (while in treatment), Outpatient referral accepted Hospital Course: Pt is a 55 y/o male admitted to rehab from [address] [place] [address] on 04/03/20 amd requesting early voluntary discharge today. Hx REG-Heroin and alcohol. PMHx:HTN,Asthma,GERD,Chronic Back Pain. Psych:Denies on admission to detox but now in rehab and reports hx of Depression/ anxiety/ insomnia and requests to see psych consult but declined to stay to follow through with consult stating "i'm fine". Pt had been seen on 04/03/20 for request of sleeping medication and anxiety. . Pt states he has to go and take care of his medical problem with his pancreas- told staff "I might have cancer". Pt reports he has primary care with [facility] and was supposed to start follow up on Sunday and would like to leave today to take care of things. Pt reports he has own medications with him. Pt was seen by counselor,Ms Divine Godfrey and has been refeered to [facility] [place] [address] [place] up with aftercare. - Medication Discharge Medications: Ambulatory Orders Losartan/Hydrochlorothiazide [Losartan-Hctz 100-25 mg Tab] 1 each PO DAILY 03/28/20 Metoprolol Succinate 50 mg PO DAILY 03/28/20 Pantoprazole Sodium 40 mg PO DAILY 03/28/20 Albuterol Sulfate Inhaler - [Ventolin HFA Inhaler -] 1 - 2 inh PO Q4H 04/02/20 Budesonide/Formeterol Fumarate [SYMBICORT 160/4.5mcg -] 1 inh PO BID 04/02/20 Naproxen [Naprosyn] 500 mg PO 04/02/20 - Medication-Assisted Treatment (MAT) Medication-Assisted Treatment (MAT): No - Discharge Instructions Diet, activity, other medical instructions: Diet:WILFREDO Activity: oob ad sidney Other medical instructions:Follow up with your PCP @ [facility] for medical management as planned. - Diagnosis (1) Alcohol use disorder Current Visit: Yes Status: Chronic (2) Opioid dependence Current Visit: Yes Status: Chronic Qualifiers: Substance use status: uncomplicated Qualified Code(s): F11.20 - Opioid dependence, uncomplicated (3) Asthmatic bronchitis Current Visit: Yes Status: Chronic Qualifiers: Asthma severity: unspecified severity Asthma persistence: unspecified (4) Hypertension Current Visit: Yes Status: Chronic Qualifiers: Hypertension type: essential hypertension Qualified Code(s): I10 - Essential (primary) hypertension - Follow-up Referral Minutes to complete discharge: 30 - AMA Did Patient Leave Against Medical Advice: No
== END 2020-04-06 13:05 | disposition home or self-care (01) | DRG 772 ==
LOC: YASAS 14:13 → Y5N 14:14
PROVIDERS: ADMIT Allergy & Immunology; ATTEND Allergy & Immunology
PROC: HZ42ZZZ Group Counseling for Substance Abuse Treatment, Cognitive-Behavioral (ICD-10-PCS; principal; 2020-04-02)
DX: F11.20 Opioid dependence, uncomplicated (principal); F10.20 Alcohol dependence, uncomplicated; F19.282 Other psychoactive substance dependence with psychoactive substance-induced sleep disorder; I10 Essential (primary) hypertension; J45.909 Unspecified asthma, uncomplicated; K21.9 Gastro-esophageal reflux disease without esophagitis; M54.89 Other dorsalgia; G89.29 Other chronic pain; Z56.0 Unemployment, unspecified; Z59.0 Homelessness
CPT/HCPCS: J0735